=== PATIENT | male | born 1955 | race Caucasian/White ===

== ENCOUNTER 2018-01-15 16:13 | Inpatient (IN) | payer BC ==
[~2018-01-15] VITALS: Ht 165.1 cm; Wt 81.6 kg
[2018-01-15 16:25] VITALS: BP 96/53
--- NOTE | 2018-01-15 16:45 | NUR ---
PT. BIB DAUGHTER DUE TO N/V/D X 3 DAYS. PT. STATES " I STARTED HAVING DIAHRRHEA AND THEN VOMITING, I CANT EAT ANYTHING BECAUSE I USUALLY THROW IT BACK UP". PT. HAS NO ABD PAIN AT THIS TIME. PT. HAS ROUND AND SOFT ABD THAT IS NONTENDER UPON PALPATION AND ACTIVE X ALL QUADRANTS. PT. C/O N/V/D X 3 DAYS BUT DENIES ANY BLOOD IN DIAHRRHEA OR VOMIT. PT. DENIES ANY FEVERS OR CHILLS. PT. IS VERBAL AND RESPONSIVE AT THIS TIME. ER MD NOTIFIED. SAFETY PRECAUTIONS IMPLEMENTED. WILL CONTINUE TO MONITOR.
[2018-01-15] MEDS ORDERED: NACL 0.9% 1,000 ML IV SCH (16:47)
[2018-01-15 17:13] LABS: BASOPHILS % (AUTO) 0.1 % (0.0-2.0); HEMATOCRIT 45.3 % (36-52); HEMOGLOBIN 15.4 g/dL (12.0-18.0); LYMPHOCYTES # (AUTO) 0.4 K/uL (2.0-11.5); LYMPHOCYTES % (AUTO) 6.9 % (20.5-51.1); MEAN CORPUSCULAR HEMOGLOBIN 29 pg (27-31); MEAN CORPUSCULAR HGB CONC 34 g/dL (33-37); MEAN CORPUSCULAR VOLUME 85.2 fL (80-94); MONOCYTES # (AUTO) 0.5 K/uL (0.8-1.0); MONOCYTES % (AUTO) 7.8 % (1.7-9.3); NEUTROPHILS # (AUTO) 5.4 K/uL (1.8-7.7); NEUTROPHILS % (AUTO) 85.2 % (42.2-75.2); PLATELET COUNT (AUTO) 197 K/uL (140-450); RED BLOOD CELL COUNT(AUTO) 5.31 MIL/uL (4.20-6.10); RED CELL DISTRIBUTION WIDTH 13.4 % (11.6-13.7); WHITE BLOOD COUNT (AUTO) 6.4 K/uL (4.8-10.8)
[2018-01-15 17:35] LABS: ANION GAP 18.1 (8-16); CARBON DIOXIDE 22.6 mmol/L (21-32); CREATININE 2.8 mg/dL (0.7-1.3); POTASSIUM 3.7 mmol/L (3.5-5.1)
[2018-01-15 17:41] LABS: ALBUMIN 3.7 g/dL (3.4-5.0); TOTAL BILIRUBIN 0.6 mg/dL (0.0-1.0)
--- NOTE | 2018-01-15 17:45 | NUR ---
PT. RESTING COMFORTABLY IN BED, RR EVEN AND UNLABORED. WILL CONTINUE TO MONITOR. AT BEDSIDE.
[2018-01-15] MEDS ORDERED: NACL 0.9% 1,000 ML IV ONE (18:30)
--- NOTE | 2018-01-15 18:58 | NUR ---
PT. RESTING COMFORTABLY IN BED , VSS, RR EVEN AND UNLABORED. WILL CONTINUE TO MONITOR.
--- NOTE | 2018-01-15 19:11 | NUR ---
Pt report given to ROD VILLANUEVA . Transfer of care at this time.
--- NOTE | 2018-01-15 19:34 | NUR ---
Patient will be admitted to care of DR. DANIEL. Admited to MED SURG. Will go to room 111A . Belongings list completed. Report to STEPHEN VELASCO.
--- NOTE | 2018-01-15 19:46 | NUR ---
RECEIVED FROM ER REPORT AWAKE AND ALERT. IN ROOM ASSIGNED WITH AT BEDSIDE. PT. ABLE TO UNDERSTAND LITTLE [place] AND SPEAKS BETTER [place] AND ALSO GREENLANDIC. AFEBRILE. CARE -PLANS FOR THE NIGHT DISCUSSED WITH PT. AND . RAPID RESPONSE EXPLAINED TO PT. CALL LIGHT WITH IN REACH. NO RESTLESSNESS AT THIS TIME. DENIES PAIN AT THIS TIME. IVF SITE TO [facility] . DX. OF SEVERE DEHYDRATION,COLITIS AND HYPONATREMIA. PT. ABLE TO WALK . NO PARALYSIS. ABLE TO VERBALIZE NEEDS WELL. SKIN INTACT . NO EDEMA . CTAB.
[2018-01-15 20:00] VITALS: BP 107/61
[2018-01-15 20:00] LABS: APPEARANCE,URINE CLOUDY (CLEAR); BILIRUBIN,URINE 1+ (NEGATIVE); BLOOD, URINE NEGATIVE (NEGATIVE); COLOR,URINE YELLOW (YELLOW); LEUKOCYTE ESTERASE ,URINE NEGATIVE (NEGATIVE); NITRITE, URINE NEGATIVE (NEGATIVE); UGLUCOSE NEGATIVE (NEGATIVE)
[2018-01-15 20:03] LABS: RBC,URINE 0-5 (RARE) /HPF (0-5); URINE AMORPHOUS URATE 3+ /HPF (None Seen); WBC,URINE 0-5 (RARE) /HPF (0-5)
[2018-01-15] MEDS ORDERED: LORazepam 2 MG/ML VIAL IVP PRN (20:15)
[2018-01-15] MEDS ORDERED: ONDANSETRON 4 MG/2 ML VIAL IVP PRN (20:15)
[2018-01-15] MEDS ORDERED: POTASSIUM CHL 20MEQ/D5-NS 1,000 ML IV SCH (20:15)
[2018-01-15] MEDS ORDERED: HYDROcodone/APAP 5/325 MG 1 TAB TAB PO PRN (20:15)
[2018-01-15] MEDS ORDERED: ACETAMINOPHEN 325 MG TAB PO PRN (20:15)
[2018-01-15] MEDS: LEVOFLOXACIN 250 MG/D5 PREMIX 50 ML IV SCH (21:42)
--- NOTE | 2018-01-15 22:39 | NUR ---
FAMILY MEMBERS LEFT AND PT. SLEEPING AT THIS TIME. NO NOTED ADVERSE REACTIONS TO LEVAQUIN IVPB ADMINISTERED. CALL LIGHT WITH IN REACH.
--- NOTE | 2018-01-15 23:01 | NUR ---
/HARDWARE TRAINER CALLED AND GAVE ORDERS TO DISCONTINUE PRESENT IVF AND CHANGE IT TO D5NS AT 75 ML/H. MADE CHARGE NURSE AWARE.
[2018-01-15] MEDS: DEXT 5% /NACL 0.9% 1,000 ML IV SCH (23:05)
[2018-01-16 00:36] VITALS: BP 110/62
--- NOTE | 2018-01-16 00:37 | NUR ---
PT. STOOL SAMPLE SENT TO LAB. FOR C-DIFF EVALUATION AND CULTURE. STOOL NOTED TO BE IN LIQUID FORM AND GREENISH IN COLOR. DENIES PAIN AT THIS TIME. ON ISOLATION PRECAUTION RT C-DIFF R/O.
[2018-01-16] MEDS ORDERED: LISINOPRIL PO (01:32)
[2018-01-16] MEDS ORDERED: HCTZ PO (01:32)
--- NOTE | 2018-01-16 04:37 | NUR ---
SLEEPING WELL. NO FURTHER COMPLAINTS. CALL LIGHT WITH IN REACH. IVF SITE INTACT. NO INFILTRATION. INDEPENDENT. NO N/V NOTED.
[2018-01-16] MEDS: metroNIDAZOLE 500 MG TAB PO SCH ×3 (05:09→21:39)
--- NOTE | 2018-01-16 06:24 | NUR ---
PT. SLEEPING. WOKE UP EASILY WHEN CALLED BY NAME. AM HYGIENE RENDERED. NO COMPLAINTS OF PAIN DONE. STILL HAD 2 LIQUID IN CONSISTENCY AND GREENISH IN COLOR BM THIS SHIFT. CALL LIGHT WITH IN REACH. INDEPENDENT.
--- NOTE | 2018-01-16 07:05 | NUR ---
RECEIVED REPORT FROM RECOVERY ENGINEER RN. PATIENT IS IN STABLE CONDITION. LUNGS CTA IN ALL TOMLIN. HEART RHYTHM IS REGULAR. NO COMPLAINTS OF PAIN OR DISCOMFORT AT THIS TIME. DENIES NAUSEA, VOMITING, AND DIARRHEA. ABDOMEN IS SOFT AND ROUND. IV SITE PATENT AND ASYMPTOMATIC, RUNNING IVF PER MD ORDERS. PT IS AMBULATORY. SKIN IS INTACT. VITALS STABLE. WILL CONTINUE TO MONITOR. Addendum: 01/16/18 at 0809 by Chelly Alejandro Meng, RN CONTACT PRECAUTIONS FOR R/O C DIFF.
[2018-01-16 07:26] LABS: BASOPHILS % (AUTO) 0.2 % (0.0-2.0); EOSINOPHILS % (AUTO) 0.3 % (0.0-4.0); HEMATOCRIT 36.7 % (36-52); HEMOGLOBIN 12.8 g/dL (12.0-18.0); LYMPHOCYTES # (AUTO) 0.7 K/uL (2.0-11.5); LYMPHOCYTES % (AUTO) 16.6 % (20.5-51.1); MEAN CORPUSCULAR HEMOGLOBIN 30 pg (27-31); MEAN CORPUSCULAR HGB CONC 35 g/dL (33-37); MEAN CORPUSCULAR VOLUME 85.2 fL (80-94); MONOCYTES # (AUTO) 0.6 K/uL (0.8-1.0); MONOCYTES % (AUTO) 13.5 % (1.7-9.3); NEUTROPHILS % (AUTO) 69.4 % (42.2-75.2); PLATELET COUNT (AUTO) 154 K/uL (140-450); RED BLOOD CELL COUNT(AUTO) 4.31 MIL/uL (4.20-6.10); RED CELL DISTRIBUTION WIDTH 13.5 % (11.6-13.7); WHITE BLOOD COUNT (AUTO) 4.3 K/uL (4.8-10.8)
[2018-01-16 07:57] LABS: ALBUMIN 2.9 g/dL (3.4-5.0); ANION GAP 10.6 (8-16); CARBON DIOXIDE 24.3 mmol/L (21-32); CREATININE 1.7 mg/dL (0.7-1.3); MAGNESIUM 2.1 mg/dL (1.8-2.4); POTASSIUM 3.9 mmol/L (3.5-5.1); TOTAL BILIRUBIN 0.4 mg/dL (0.0-1.0)
[2018-01-16 08:00] VITALS: BP 120/70
--- NOTE | 2018-01-16 08:51 | NUR ---
PATIENT HAS BEEN SCREENED AND CATEGORIZED HIGH NUTRITION RISK. PATIENT WILL BE SEEN WITHIN 1-2 DAYS OF ADMISSION. 01/16/18 01/17/[address]
--- NOTE | 2018-01-16 09:31 | NUR ---
FAMILY MEMBERS AT BEDSIDE. EXPLAINED PLAN OF CARE TO FAMILY MEMBER WHO SPEAKS K[place]. COMMUNICATED THE NEED TO EVALUATE FOR CDIFF AND POSSIBLE IV ABX IF CDIFF POSITIVE.
--- NOTE | 2018-01-16 10:00 | NUR ---
PATIENT TOLERATED DIET WELL. ATE 100% OF BREAKFAST. NO COMPLAINTS OF NAUSEA, VOMITING, OR DIARRHEA.
[2018-01-16] MEDS: ENOXAPARIN 30 MG/0.3 ML SYR SUBQ SCH (10:08)
[2018-01-16] MEDS: DEXT 5% /NACL 0.9% 1,000 ML IV SCH (12:44)
--- NOTE | 2018-01-16 12:45 | NUR ---
OTHER FAMILY MEMBERS AT BEDSIDE. EXPLAINED PLAN OF CARE INCLUDING PENDING CDIFF RESULTS. PATIENT AND FAMILY MEMBER VERBALIZED UNDERSTANDING. WILL CONTINUE TO MONITOR.
--- NOTE | 2018-01-16 14:05 | NUR ---
PT IS RESTING COMFORTABLY IN BED. PT IS WATCHING TV. NO SIGNS OF DISTRESS. NO COMPLAINTS AT THIS TIME. WILL CONTINUE TO MONITOR PT.
--- NOTE | 2018-01-16 14:16 | NUR ---
CM NOTE PER CLINICAL PROJECT COORDINATOR DON, REVIEWS SHOULD ONLY BE SENT TO [facility] INITIAL REVIEW FAXED TO [facility] [phone] [facility]# [phone]
--- NOTE | 2018-01-16 15:02 | NUR ---
01/16/18 RD INITIAL ASSESSMENT COMPLETED PLEASE REFER TO NUTRITION ASSESSMENT UNDER CARE ACTIVITY FOR ESTIMATED NUTRITIONAL NEEDS. 1. CONTINUE 2GM SODIUM DIET TOLERATED 2. PROVIDED NUTRITION EDUCATION ON HTN, N/V DIARRHEA SYMPTOM MANAGEMENT 3. RD TO FOLLOW-UP 3-5 DAYS, MODERATE RISK ANNABEL WAN, RD
--- NOTE | 2018-01-16 15:36 | NUR ---
PT RESTING IN BED, AROUSABLE BY VOICE. NO COMPLAINTS OF PAIN OR DISTRESS. NO DISTRESS NOTED. WILL CONTINUE TO MONITOR. Addendum: 01/16/18 at 1539 by Chelly Alejandro Meng, RN US TECHNICIANS AT BEDSIDE TO PERFORM US KIDNEYS.
[2018-01-16 16:00] VITALS: BP 118/81
--- NOTE | 2018-01-16 16:24 | NUR ---
PATIENT SITTING IN BED, EATING SUBWAY SANDWICH BROUGHT BY FAMILY MEMBER AT BEDSIDE. EDUCATION GIVEN ABOUT MD ORDERS FOR 2 GM SODIUM DIET. RISK AND BENEFITS OF LOW SODIUM DIET FOR KIDNEY HEALTH AND BP CONTROL DISCUSSED WITH PATIENT. PATIENT AND FAMILY MEMBER VERBALIZED UNDERSTANDING. NO COMPLAINTS OF PAIN OR DISCOMFORT. WILL CONTINUE TO MONITOR.
--- NOTE | 2018-01-16 18:20 | NUR ---
PER PATIENT, HE HAD SMALL, SOFT, FORMED STOOL TODAY. CDIFF RESULT IS NEGATIVE.
--- NOTE | 2018-01-16 19:20 | NUR ---
ENDORSED PLAN OF CARE TO [employer] CONCRET[employer]ODUCTS INSTALLER RN. PT IN STABLE CONDITION.
--- NOTE | 2018-01-16 19:21 | NUR ---
RECD. RESTING IN BED, AWAKE, A/OX4. RESPIRATION EVEN AND UNLABORED. IV OF D5NS AT 75 ML/HR INFUSING, LEFT AC G20. CONVERSING WITH FAMILY AT THE BEDSIDE. AMBULATORY TO BR. STATED NO MORE DIARRHEA. PLAN OF CARE DISCUSSED WITH PATIENT AND FAMILY, VERBALIZED UNDERSTANDING. DENIES PAIN 0/10.
--- NOTE | 2018-01-16 21:40 | NUR ---
DUE PO MEDICATION GIVEN, OFFERED JUICES AND ENCOURAGED TO DRINK MORE FLUIDS.
[2018-01-16] MEDS: LEVOFLOXACIN 250 MG/D5 PREMIX 50 ML IV SCH (21:52)
[2018-01-17] VITALS: BP 108/77
--- NOTE | 2018-01-17 | NUR ---
SLEEPING COMFORTABLY IN BED.
[2018-01-17] MEDS: DEXT 5% /NACL 0.9% 1,000 ML IV SCH (02:12)
--- NOTE | 2018-01-17 04:50 | NUR ---
AWAKE IN BED. NO COMPLAINT OF PAIN 0/10.
[2018-01-17] MEDS: metroNIDAZOLE 500 MG TAB PO SCH ×2 (05:48→13:52)
[2018-01-17 06:39] LABS: BASOPHILS # (AUTO) 0.1 K/uL (0.00-0.22); BASOPHILS % (AUTO) 1.7 % (0.0-2.0); EOSINOPHILS % (AUTO) 1.3 % (0.0-4.0); HEMATOCRIT 36.2 % (36-52); HEMOGLOBIN 12.2 g/dL (12.0-18.0); LYMPHOCYTES # (AUTO) 0.9 K/uL (2.0-11.5); LYMPHOCYTES % (AUTO) 25.7 % (20.5-51.1); MEAN CORPUSCULAR HEMOGLOBIN 29 pg (27-31); MEAN CORPUSCULAR HGB CONC 34 g/dL (33-37); MONOCYTES # (AUTO) 0.5 K/uL (0.8-1.0); MONOCYTES % (AUTO) 14.9 % (1.7-9.3); NEUTROPHILS % (AUTO) 56.4 % (42.2-75.2); PLATELET COUNT (AUTO) 153 K/uL (140-450); RED BLOOD CELL COUNT(AUTO) 4.21 MIL/uL (4.20-6.10); RED CELL DISTRIBUTION WIDTH 13.5 % (11.6-13.7); WHITE BLOOD COUNT (AUTO) 3.5 K/uL (4.8-10.8)
--- NOTE | 2018-01-17 07:01 | NUR ---
CONDITION REMAIN STABLE. WILL ENDORSE TO AM NURSE FOR CONTINUITY OF CARE.
[2018-01-17 07:07] LABS: ALBUMIN 2.8 g/dL (3.4-5.0); ANION GAP 9.3 (8-16); CARBON DIOXIDE 25.1 mmol/L (21-32); CREATININE 1.3 mg/dL (0.7-1.3); POTASSIUM 3.4 mmol/L (3.5-5.1); TOTAL BILIRUBIN 0.3 mg/dL (0.0-1.0)
--- NOTE | 2018-01-17 07:20 | NUR ---
RECEIVED REPORT FROM NIGHTSHIFT NURSE AT BEDSIDE. PATIENT IS AWAKE AT THIS TIME. PATIENT IS PRIMARILY SERBIAN SPEAKER BUT IS ALERT AND ORIENTED X4. NO DISTRESS NOTED AT THIS TIME. NO PAIN NOTED. NO EVIDENCE OF NAUSEA OR VOMITING. PATIENT HAS IV ACCESS ON LEFT AC 20G. UPDATED BOARD IN PATIENT'S ROOM. BED IN LOWEST POSITION. WILL CONTINUE TO MONITOR PATIENT.
--- NOTE | 2018-01-17 07:20 | NUR ---
ENDORSED TO AM NURSE FOR CONTINUITY OF CARE.
[2018-01-17 07:50] VITALS: BP 129/72
[2018-01-17] MEDS: ENOXAPARIN 30 MG/0.3 ML SYR SUBQ SCH (08:20)
--- NOTE | 2018-01-17 08:45 | NUR ---
PATIENT AWAKE AT THIS TIME. NO DISTRESS NOTED. WILL CONTINUE TO MONITOR PATIENT.
[2018-01-17] MEDS ORDERED: POTASSIUM CHLORIDE 10 MEQ TABER PO SCH (09:00)
--- NOTE | 2018-01-17 12:00 | NUR ---
PATIENT RESTING IN BED. NO DISTRESS NOTED. PATIENT FAMILY MEMBER AT BEDSIDE. WILL CONTINUE TO MONITOR PATIENT.
--- NOTE | 2018-01-17 14:03 | NUR ---
PATIENT RESTING IN BED AT THIS TIME. NO DISTRESS NOTED. WILL CONTINUE TO MONITOR PATIENT.
--- NOTE | 2018-01-17 14:16 | NUR ---
CONCURRENT REVIEW FAXED TO [facility] [phone] [place] # [phone]
--- NOTE | 2018-01-17 15:30 | NUR ---
PATIENT RESTING AT THIS TIME. NO DISTRESS NOTED. WILL CONTINUE TO MONITOR PATIENT.
--- NOTE | 2018-01-17 17:05 | NUR ---
OFFERED TO USE TRANSLATING SERVICES FOR PATIENT BUT HE WANTED HIS FAMILY MEMBER TO TRANSLATE. PATIENT SIGNED ALL DISCHARGE INSTRUCTIONS. REMOVED PATIENT'S IDENTIFICATION BAND AND IV LINE WITH CATHETER STILL INTACT. PATIENT GATHERED ALL BELONGINGS. PATIENT AMBULATED OFF THE UNIT IN STABLE CONDITION.
== END 2018-01-17 17:05 | disposition home or self-care (01) | DRG 683 ==
LOC: MED 16:13 → MTU 18:53
PROVIDERS: ADMIT Hospitalist; ATTEND Hospitalist
DX: N17.9 Acute kidney failure, unspecified (principal); E87.1 Hypo-osmolality and hyponatremia; K52.9 Noninfective gastroenteritis and colitis, unspecified; E87.6 Hypokalemia; E86.0 Dehydration; N18.9 Chronic kidney disease, unspecified; I12.9 Hypertensive chronic kidney disease with stage 1 through stage 4 chronic kidney disease, or unspecified chronic kidney disease; E86.1 Hypovolemia
CPT/HCPCS: 36415; 71045; 76770; 80053; 81001; 83605; 83735; 84484; 85025; 85610; 85730; 87040; 87045; 87070; 87081; 87086; 93005; 96360; 96361; 99285; J1650; J1956; J7042; Q0092